=== PATIENT | female | born 1970 | race Caucasian/White ===

== ENCOUNTER 2019-01-10 14:37 | Outpatient (CLI) | payer BC | END 2019-01-10 23:59 | disposition home or self-care (01) | LOC: CFH 14:37 | PROVIDERS: ATTEND Obstetrics & Gynecology | DX: R92.1 Mammographic calcification found on diagnostic imaging of breast (principal) | CPT/HCPCS: 77066; G0279 ==

== ENCOUNTER 2019-01-29 08:36 | Outpatient (CLI) | payer BC ==
[2019-01-29] MEDS ORDERED: LIDOCAINE 1%-EPI 1:100K, 20ML ONE (10:29)
[2019-01-29] MEDS ORDERED: SODIUM BICARBONATE 4.0%, 5ML ONE (10:29)
== END 2019-01-29 23:59 | disposition home or self-care (01) ==
LOC: CFH 08:36
PROVIDERS: ATTEND Obstetrics & Gynecology
DX: R92.1 Mammographic calcification found on diagnostic imaging of breast (principal)
CPT/HCPCS: 19081; 77066; 88305; 88341; 88342; J3490

== ENCOUNTER → 2021-06-17 | Outpatient (CLI) | payer BC | END | disposition home or self-care (01) | LOC: CFH 15:04 | PROVIDERS: ATTEND Obstetrics & Gynecology | DX: Z12.31 Encounter for screening mammogram for malignant neoplasm of breast (principal) | CPT/HCPCS: 77063; 77067 ==